=== PATIENT | male | born 2000 | race American Indian/Alaskan Native ===

== ENCOUNTER 2019-08-23 20:20 | Observation (INO) | payer MEDICAID, OTHER ==
[2019-08-23] MEDS ORDERED: ACETAMINOPHEN 500 MG TAB PO ONE (20:47)
[2019-08-23] MEDS ORDERED: SODIUM CHLORIDE 0.9% 1000 ML 1,000 ML IV ONE (21:05)
[2019-08-23] MEDS ORDERED: ONDANSETRON 4 MG/2 ML INJ IV ONE (21:06)
[2019-08-23 21:11] LABS: Basophils % (Auto) 0.4 % (0.0-1.8); Hematocrit 45.1 % (35.5-45.6); Hemoglobin 15.1 gm/dl (11.8-15.2); Lymphocytes # (Auto) 1.5 K/mm3 (1.2-5.4); Lymphocytes % (Auto) 30.2 % (13.4-35.0); Mean Corpuscular HGB Conc 34 % (32-34); Mean Corpuscular Volume 86 fl (84-94); Monocytes # (Auto) 0.5 K/mm3 (0.0-0.8); Platelet Count 209 K/mm3 (140-440); Red Blood Count 5.24 M/mm3 (3.65-5.03); Red Cell Distribution Width 12.7 % (13.2-15.2)
--- NOTE | 2019-08-23 21:11 | Emergency Department Report ---
HPI - General Chief Complaint: Fever Time Seen by Provider: 08/23/19 20:53 - HPI HPI: Room 9 The patient is a 18-year-old male present with a chief complaint of cough fever nausea vomiting and diarrhea. The patient is to a cough that is occasionally pr oductive for the past 2 weeks. Patient states he has had a fever at home of 101 F. Patient states for the past 7 days he has had diarrhea for the past 5 days he has had intractable nausea and vomiting preventing him from keeping anything down. Of note the patient has had contact with his mother who tested positive for covert 19 and is currently hospitalized. ED Past Medical Hx - Past Medical History Previous Medical History?: No - Surgical History Past Surgical History?: Yes Additional Surgical History: A&T - Family History Family history: no significant - Social History Smoking Status: Never Smoker Substance Use Type: None (Denies illicit drug use) ED Review of Systems ROS: Stated complaint: COUGH/EMESIS/DIARRHEA/FEVER/BODY ACHES Other details as noted in HPI Constitutional: fever Eyes: denies: eye pain Respiratory: cough Endocrine: no symptoms reported Gastrointestinal: nausea, vomiting, diarrhea Genitourinary: denies: dysuria Musculoskeletal: myalgia Neurological: denies: headache Physical Exam - Physical Exam Vital Signs: Vital Signs 08/23/19 20:39 Temperature 100.8 F H Pulse Rate 101 H Respiratory 20 Rate Blood Pressure 135/87 O2 Sat by Pulse 95 Oximetry Physical Exam: GENERAL: The patient is well-developed well-nourished male lying on stretcher exhibiting an occasional cough but in no acute distress. [] HEENT: Normocephalic. Atraumatic. Extraocular motions are intact. Patient has moist mucous membranes. NECK: Supple. Trachea midline CHEST/LUNGS: Clear to auscultation. There is no respiratory distress noted. HEART/CARDIOVASCULAR: Regular. There is no tachycardia. There is no gallop rub or murmur. ABDOMEN: Abdomen is soft, nontender. Patient has normal bowel sounds. There is no abdominal distention. SKIN: There is no rash. There is no edema. There is no diaphoresis. NEURO: The patient is awake, alert, and oriented. The patient is cooperative. The patient has normal speech MUSCULOSKELETAL: There is no evidence of acute injury. ED Course Vital Signs 08/23/19 20:39 Temperature 100.8 F H Pulse Rate 101 H Respiratory 20 Rate Blood Pressure 135/87 O2 Sat by Pulse 95 Oximetry - Reevaluation(s) Reevaluation #1: 08/23/19 23:03 Patient tolerating po ED Medical Decision Making - Lab Data Result diagrams: 08/23/19 20:53 08/23/19 20:53 Laboratory Tests 08/23/19 08/23/19 08/23/19 20:53 20:53 21:01 WBC 5.0 RBC 5.24 H Hgb 15.1 Hct 45.1 MCV 86 MCH 29 MCHC 34 RDW 12.7 L Plt Count 209 Lymph % (Auto) 30.2 [place] % (Auto) 10.0 H Eos % (Auto) 0.0 Baso % (Auto) 0.4 Lymph # 1.5 [place] # 0.5 Eos # 0.0 Baso # 0.0 Seg Neutrophils % 59.4 Seg Neutrophils # 2.9 Sodium 134 L Potassium 3.5 L Chloride 93.8 L Carbon Dioxide 22 Anion Gap 22 BUN 11 Creatinine 1.1 Estimated GFR > 60 BUN/Creatinine Ratio 10 Glucose 95 Lactic Acid 0.80 Calcium 8.7 Total Bilirubin 0.30 AST 68 H ALT 43 Alkaline Phosphatase 44 Total Protein 7.4 Albumin 3.9 Albumin/Globulin Ratio 1.1 Lipase Influenza A (Rapid) Influenza B (Rapid) 08/23/19 08/23/19 21:08 Unknown WBC RBC Hgb Hct MCV MCH MCHC RDW Plt Count Lymph % (Auto) [place] % (Auto) Eos % (Auto) Baso % (Auto) Lymph # [place] # Eos # Baso # Seg Neutrophils % Seg Neutrophils # Sodium Potassium Chloride Carbon Dioxide Anion Gap BUN Creatinine Estimated GFR BUN/Creatinine Ratio Glucose Lactic Acid Calcium Total Bilirubin AST ALT Alkaline Phosphatase Total Protein Albumin Albumin/Globulin Ratio Lipase 41 Influenza A (Rapid) Negative Influenza B (Rapid) Negative - Radiology Data Radiology results: image reviewed (Chest x-ray) interpreted by me: Chest x-ray-right lower lobe atelectasis - Medical Decision Making Patient tolerated p.o. challenge however his blood pressure has gradually trended downward to the point I am no longer comfortable discharging the patient home to self quarantine. Hospitalist was notified and Covid 19 persons under investigation form submitted - Differential Diagnosis Covid 19, influenza, pneumonia, gastroenteritis Critical care attestation.: If time is entered above; I have spent that time in minutes in the direct care of this critically ill patient, excluding procedure time. ED Disposition Clinical Impression: Pneumonia, Dehydration Disposition: DC-09 OP ADMIT IP TO THIS HOSP Is pt being admited?: Yes Condition: Fair Instructions: Bacterial Pneumonia (ED) Referrals: PRIMARY CARE,MD [Primary Care Provider] - 3-5 Days Time of Disposition: 00:03 (Hospitalist paged (Dr Posadas))
--- NOTE | 2019-08-23 21:20 | XRay Report ---
CHEST 1 VIEW INDICATION / CLINICAL INFORMATION: cough. COMPARISON: None available. FINDINGS: SUPPORT DEVICES: None. HEART / MEDIASTINUM: No significant abnormality. LUNGS / PLEURA: Linear and slightly patchy densities are identified at the right lung base. No pneumo thorax. ADDITIONAL FINDINGS: No significant additional findings. IMPRESSION: 1. Right lower lobe subsegmental atelectasis versus evolving airspace disease. Signer Name: Corey Gutierrez MD Signed: 08/23/2019 9:16 PM Workstation Name: [id number]
[2019-08-23] MEDS ORDERED: cefTRIAXone/NS 1 GM/50 ML 1 GM/50 ML BAG IV ONE (21:22)
[2019-08-23] MEDS ORDERED: AZITHROMYCIN 500 MG in SODIUM CHLORIDE 0.9% 250ML 250 ML IV ONE (21:22)
[2019-08-23 22:05] LABS: Alanine Aminotransferase 43 units/L (7-56); Albumin 3.9 g/dL (3.9-5); BUN/Creatinine Ratio 10; Blood Urea Nitrogen 11 mg/dL (9-20); Calcium 8.7 mg/dL (8.4-10.2); Hemolysis Index 9
[2019-08-24] MEDS ORDERED: SODIUM CHLORIDE 0.9% 1000 ML 1,000 ML IV ONE (00:02)
[2019-08-24] MEDS ORDERED: ONDANSETRON 4 MG/2 ML INJ IV PRN (00:51)
[2019-08-24] MEDS ORDERED: ACETAMINOPHEN 325 MG TAB PO PRN (00:51)
[2019-08-24] MEDS ORDERED: MAGNESIUM HYDROXIDE (MOM) ORAL LIQD UDC PO PRN (00:51)
[2019-08-24] MEDS ORDERED: SODIUM CHLORIDE 0.9% 1000 ML 1,000 ML IV SCH (01:00)
--- NOTE | 2019-08-24 01:02 | History and Physical Report ---
History of Present Illness Date of examination: 08/24/19 Date of admission: 08/24/19 00:06 Chief complaint: Shortness of breath Cough History of present illness: 18-year-old -[place] male with no significant past medical history presenting to the emergency room today complaining of cough and fever which has been ongoing for about 2 weeks. He has had a fever of about 101 F. Cough has been occasionally productive. He has also had some nausea and vomiting and occasional diarrhea lately. Patient denies any abdominal pain, denies any bright red blood per rectum, denies any dysuria or hematuria. Patient denies any recent travel but has been in contact with mother who is currently on admission and tested positive for Covid 19. Evaluation in the emergency room reveals a right lower lobe pneumonia on chest x-ray. He was also slightly hypotensive upon arrival. Patient subsequently started on empiric IV antibiotics. Past History Past Medical History: No medical history Past Surgical History: No surgical history Social history: no significant social history Family history: other (Mother on admission for Pneumonia- with COVID19.) Medications and Allergies Allergies Allergy/AdvReac Type Severity Reaction Status Date / Time No Known Allergies Allergy Verified 08/23/19 21:24 Active Meds: Active Medications Acetaminophen (Tylenol) 650 mg PO Q4H PRN PRN Reason: Pain MILD(1-3)/Fever >100.5/MARTINEZ Heparin Sodium (Porcine) (Heparin) 5,000 unit SUB-Q Q8HR AMBROSE Sodium Chloride (Nacl 0.9% 1000 Ml) 1,000 mls @ 999 mls/hr IV ONCE ONE Stop: 08/24/19 01:02 Last Admin: 08/24/19 00:15 Dose: 999 mls/hr Documented by: Sodium Chloride (Nacl 0.9% 1000 Ml) 1,000 mls @ 125 mls/hr IV DIRECT AMBROSE Ceftriaxone Sodium (Rocephin/Ns 2 Gm/100 Ml) 2 gm in 100 mls @ 200 mls/hr IV Q24HR AMBROSE; Protocol Azithromycin 500 mg/ Sodium (Chloride) 250 mls @ 250 mls/hr IV Q24HR AMBROSE; Protocol Magnesium Hydroxide (Milk Of Magnesia) 30 ml PO Q4H PRN PRN Reason: Constipation Ondansetron HCl (Zofran) 4 mg IV Q8H PRN PRN Reason: Nausea And Vomiting Sodium Chloride (Sodium Chloride Flush Syringe 10 Ml) 10 ml IV BID AMBROSE Sodium Chloride (Sodium Chloride Flush Syringe 10 Ml) 10 ml IV PRN PRN PRN Reason: LINE FLUSH Review of Systems Constitutional: no fever, no chills Cardiovascular: no chest pain, no palpitations Respiratory: cough, shortness of breath Gastrointestinal: nausea, vomiting, diarrhea, no abdominal pain Genitourinary Male: no dysuria, no hematuria Musculoskeletal: no neck pain, no low back pain Integumentary: no rash, no pruritis Neurological: no headaches, no change in mentation Exam - Constitutional Vitals: Temp Pulse Resp BP Pulse Ox 100.8 F H 85 23 94/53 97 08/23/19 20:39 08/24/19 00:45 08/24/19 00:45 08/24/19 00:45 08/24/19 00:45 General appearance: Present: no acute distress, well-nourished, obese - EENT Eyes: Present: PERRL, EOM intact ENT: hearing intact, clear oral mucosa, dentition normal - Neck Neck: Present: normal ROM - Respiratory Respiratory effort: normal Respiratory: bilateral: diminished - Cardiovascular Rhythm: regular Heart Sounds: Present: S1 & S2 - Extremities Extremities: no ischemia, pulses intact, pulses symmetrical, No edema, Full ROM - Abdominal General gastrointestinal: Present: soft, non-tender, non-distended, normal bowel sounds - Integumentary Integumentary: Present: clear, warm, dry, normal turgor - Musculoskeletal Musculoskeletal: strength equal bilaterally - Psychiatric Psychiatric: appropriate mood/affect, intact judgment & insight, cooperative - Neurologic Neurologic: CNII-XII intact, moves all extremities Results - Labs CBC & Chem 7: 08/23/19 20:53 08/23/19 20:53 Labs: Abnormal lab results 08/23/19 08/23/19 Range/Units 20:53 20:53 RBC 5.24 H (3.65-5.03) M/mm3 RDW 12.7 L (13.2-15.2) % [place] % (Auto) 10.0 H (0.0-7.3) % Sodium 134 L (137-145) mmol/L Potassium 3.5 L (3.6-5.0) mmol/L Chloride 93.8 L (98-107) mmol/L AST 68 H (5-40) units/L Assessment and Plan - Patient Problems (1) Pneumonia Current Visit: Yes Status: Acute Plan to address problem: He has been started on empiric IV antibiotics. Will await blood culture results. In view of his contact with his mother who has been diagnosed with covid19 p atient has also been placed on droplet precautions to be ruled out for covid [address] a consult to infectious disease for evaluation and further recommendation. (2) Dehydration Current Visit: Yes Status: Acute Plan to address problem: Possibly secondary to the nausea vomiting and diarrhea. He has been started on IV fluid. Will monitor BUN and creatinine. (3) DVT prophylaxis Current Visit: Yes Status: Acute Plan to address problem: Patient placed on subcutaneous heparin. (4) Full code status Current Visit: Yes Status: Acute
[2019-08-24] MEDS: HEPARIN 5,000 UNIT/1 ML VIAL SUB-Q SCH ×2 (05:34→16:36)
[2019-08-24] MEDS ORDERED: AZITHROMYCIN 500 MG in SODIUM CHLORIDE 0.9% 250ML 250 ML IV SCH (10:00)
[2019-08-24] MEDS ORDERED: cefTRIAXone/NS 2 GM/100 ML 2 GM/100 ML BAG IV SCH (10:00)
[2019-08-24] MEDS ORDERED: POTASSIUM CHLORIDE ER 20 MEQ TAB PO NR (11:06)
--- NOTE | 2019-08-24 12:53 | Event Note ---
Date: 08/24/19 Patient was seen by me this morning Patient was admitted for possible Covid 19 pneumonia Patient mother who is currently under my service intubated in the ICU for possible Covid 19 infection PUI form was submitted by ER, will await for swab collection Patient is mildly symptomatic, mostly afebrile saturating well in room air Patient could be discharged after swab collection
--- NOTE | 2019-08-24 15:20 | Discharge Summary ---
Providers - Providers Date of Admission: 08/24/19 00:06 Date of discharge: 08/24/19 Attending physician: JESSENIA BOWDEN 08/24/19 00:51 Consult to Physician [CONS] Routine Comment: Consulting Provider: RAYSHAWN CHASE Physician Instructions: Reason For Exam: PNEUMONIA. R/O COVID 19 Primary care physician: FROZEN MEAT CUTTER Hospitalization Condition: Fair Hospital course: 18 y/o obese male presented with subjective fever and dry cough. Patient was seen by me this morning Patient was admitted for possible Covid 19 pneumonia (right lower lobe pneumonia on chest x-ray) Patient mother who is currently under my service intubated in the ICU for possible Covid 19 infection. PUI form was submitted by ER, and swab collection was done. Ferritin was 558. Patient is mildly symptomatic with dry cough, he is afebrile and saturating >96% in room air Patient was discharged after swab collection. Upon discharge patient should self-quarantine at home until COVID testing returns. If negative, self-quarantine may end. If positive patient should self- quarantine for 14 days from symptom beginning. Public health and infection prevention will follow up with patients to notify them of their test results. Patients should return to hospital regardless if they have worsening fevers or respiratory status. Please avoid NSAIDs. Discharge diagnosis: RLL PNA COVID 19, suspected Dehydration hypokalemia Physical exam: Limited physical exam due to COVID 19 pandemic and limited PPE Vitals noted Constitutional:alert in NAD Neck: limited due to lack of PPE Oral:limited due to lack of PPE Cardiovascular: limited due to lack of PPE Respiratory: CTABL per NS GI: limited due to lack of PPE Musculoskeletal: limited due to lack of PPE Skin: No rash or abscess Hem/Lymphatic: limited due to lack of PPE Psych: no agitated Neurological: no agitated Disposition: DC-01 TO HOME OR SELFCARE Time spent for discharge: 34 minutes Core Measure Documentation - Palliative Care Palliative Care/ Comfort Measures: Not Applicable - Core Measures Any of the following diagnoses?: none Exam - Constitutional Vitals: Temp Pulse Resp BP Pulse Ox 99.7 F H 86 18 108/51 98 08/24/19 13:05 08/24/19 13:05 08/24/19 13:05 08/24/19 13:05 08/24/19 13:05 Plan Activity: advance as tolerated Weight Bearing Status: Weight Bear as Tolerated Diet: low fat, low salt Additional Instructions: Call Doyle Owens - [phone] for pending COVID19 result. Upon discharge patient should self-quarantine at home until COVID testing returns. If negative, self-quarantine may end. If positive patient should self-quarantine for 14 days from symptom beginning. Public health and infection prevention will follow up with patients to notify them of their test results. Patients should return to hospital regardless if they have worsening fevers or respiratory status. Please avoid NSAIDs. Follow up with: PRIMARY CARE, [Primary Care Provider] - 3-5 Days TAM MARTEL MD [Staff Physician] - 7 Days Prescriptions: guaiFENesin ER [Mucinex ER] 600 mg PO Q12H #20 tablet.er Hydroxychloroquine [Plaquenil] 200 mg PO QDAY #12 tablet Albuterol INH(or & Nicu Only) [ProAir HFA Inhaler] 2 puff IH QID PRN #8.5 gram PRN Reason: Shortness Of Breath
[2019-08-24 16:41] VITALS: BP 107/57
--- NOTE | 2019-08-24 18:27 | Consultation ---
History of Present Illness - Reason for Consult Consult date: 08/24/19 r/o covid pneumonia Requesting physician: PAUL OG - History of Present Illness 18 y/o male with morbid obese, no significant past medical history admitted due to complaining of cough and fever which has been ongoing for about 2 weeks. He has had a fever of about 101 F. Cough has been occasionally productive. He has also had some nausea and vomiting and multiple diarrhea lately. Patient d enies any recent travel but has been in contact with mother who is currently admitted and tested positive for COVID19. Evaluation in the emergency room reveals a right lower lobe pneumonia on chest x-ray. Initial WBC normal. Ferritin 558. Currently on room air. Review of Systems: Bold if positive, otherwise negative General: fevers, chills, rigors HEENT: visual disturbance, diplopia, eye pain Respiratory: cough, sputum, shortness of breath, MARTIN Cardiovascular: chest pain, syncope Gastrointestinal: nausea, vomiting, diarrhea, abdominal pain Genitourinary: dysuria, hematuria, flank pain Musculoskeletal: neck pain, back pain, joint pain, edema Neurologic: headaches, seizures Hematologic: easy bruising or bleeding Endocrine: night sweats, acute weight loss Skin: rash, jaundice, redness Psychiatric: suicidal, homicidal ideation Past History Past Medical History: No medical history Past Surgical History: No surgical history Social history: no significant social history Family history: other (Mother on admission for Pneumonia- with COVID19.) Medications and Allergies Allergies Allergy/AdvReac Type Severity Reaction Status Date / Time No Known Allergies Allergy Verified 08/23/19 21:24 Home Medications Medication Instructions Recorded Confirmed Last Taken Type Albuterol INH(or & Nicu Only) 2 puff IH QID PRN #8.5 gram 08/24/19 Unknown Rx [ProAir HFA Inhaler] guaiFENesin ER [Mucinex ER] 600 mg PO Q12H #20 tablet.er 08/24/19 Unknown Rx levoFLOXacin [Levaquin] 750 mg PO QDAY #7 tablet 08/24/19 Unknown Rx Active Meds: Active Medications Acetaminophen (Tylenol) 650 mg PO Q4H PRN PRN Reason: Pain MILD(1-3)/Fever >100.5/MARTINEZ Heparin Sodium (Porcine) (Heparin) 5,000 unit SUB-Q Q8HR AMBROSE Last Admin: 08/24/19 16:36 Dose: Not Given Documented by: Sodium Chloride (Nacl 0.9% 1000 Ml) 1,000 mls @ 125 mls/hr IV DIRECT AMBROSE Last Admin: 08/24/19 02:24 Dose: 125 mls/hr Documented by: Ceftriaxone Sodium (Rocephin/Ns 2 Gm/100 Ml) 2 gm in 100 mls @ 200 mls/hr IV Q24HR AMBROSE; Protocol Last Admin: 08/24/19 10:05 Dose: 200 mls/hr Documented by: Azithromycin 500 mg/ Sodium (Chloride) 250 mls @ 250 mls/hr IV Q24HR AMBROSE; Protocol Last Admin: 08/24/19 11:58 Dose: 250 mls/hr Documented by: Magnesium Hydroxide (Milk Of Magnesia) 30 ml PO Q4H PRN PRN Reason: Constipation Ondansetron HCl (Zofran) 4 mg IV Q8H PRN PRN Reason: Nausea And Vomiting Sodium Chloride (Sodium Chloride Flush Syringe 10 Ml) 10 ml IV BID AMBROSE Last Admin: 08/24/19 10:05 Dose: 10 ml Documented by: Sodium Chloride (Sodium Chloride Flush Syringe 10 Ml) 10 ml IV PRN PRN PRN Reason: LINE FLUSH Physical Examination - Physical Exam Narrative exam: Gen: alert in NAD in [place] O2 2L Head, Ears, Nose: Normocephalic, atraumatic. Oral: Limited Cardiovascular: Limited evaluation due to PPE shortage Respiratory: oralia crackles GI: Limited evaluation due to PPE shortage Musculoskeletal: Limited evaluation due to PPE shortage Neurological: alert non focal - Constitutional Vitals: Vital Signs Temp Pulse Resp BP Pulse Ox 99.6 F 90 18 107/57 95 08/24/19 16:38 08/24/19 16:38 08/24/19 16:38 08/24/19 16:38 08/24/19 16:38 Temperature -Last 24 Hours Temperature 99.6 F Temperature 99.7 F Temperature 99.0 F Temperature 98.7 F Temperature 98.1 F Temperature 100.8 F Results - Labs CBC & Chem 7: 08/23/19 20:53 08/23/19 20:53 Labs: Abnormal lab results 08/23/19 08/23/19 08/24/19 Range/Units 20:53 20:53 10:47 RBC 5.24 H (3.65-5.03) M/mm3 RDW 12.7 L (13.2-15.2) % [place] % (Auto) 10.0 H (0.0-7.3) % Sodium 134 L (137-145) mmol/L Potassium 3.5 L (3.6-5.0) mmol/L Chloride 93.8 L (98-107) mmol/L Ferritin 558.5 H (13.0-400.0) ng/mL AST 68 H (5-40) units/L Assessment and Plan Cultures: Blood culture 08/21/2019 no growth to date A/P: 18 y/o male with morbid obese, no significant past medical history admitted due to complaining of cough and fever 101 which has been ongoing for about 2 weeks: #Fever: likely due to bilateral pneumonia. #Bilateral pneumonia: high suspicion for COVID, as mother has severe COVID pneumonia. Noted Ferritin mildly elevated. Chest x-ray shows with RLL pneumonia. #N/V/D: likely from COVID #Morbid obesity Recs: Continuos pulse oximetry and exercise sats - if ok then ofk to dc Obtain COVID test ContinueCOVID isolationprecautions per [facility] protocol Start ceftriaxone Obtain serial Ferritin, LDH, D-Dimer, CRP every 48h Home quarantine for 14 days from initial symptoms (own bedroom, toilet, utensils), educate that viral shedding may last 21 days Thank you for the consult, we will continue to follow. Jackelyn Rincon MD Infectious Diseases Career Services Coordinator [facility] ([facility]) M [phone]
== END 2019-08-24 18:00 | disposition home or self-care (01) ==
LOC: ED 20:20 → INTOOBSV 08-24 00:06 → 3A 08-24 00:06
PROVIDERS: ADMIT Internal Medicine Geriatric Medicine; ATTEND Internal Medicine
DX: U07.1 COVID-19 (principal); J18.9 Pneumonia, unspecified organism; E86.0 Dehydration; I95.9 Hypotension, unspecified; E87.6 Hypokalemia; Z79.899 Other long term (current) drug therapy
CPT/HCPCS: 36415; 71045; 80053; 82140; 82728; 83690; 84145; 85025; 87040; 87400; 96361; 96365; 96366; 96367; 96372; 96375; 99284; G0378; J0456; J0696; J1644; J2405; J7030; J7050